=== PATIENT | female | born 1970 | race Caucasian/White ===

== ENCOUNTER 2020-06-25 11:06 | Outpatient (CLI) | payer BC, SELFPAY ==
--- NOTE | 2020-06-25 11:13 | MM_ITS ---
WS: [id number] SCREENING DIGITAL MAMMOGRAM WITH CAD HISTORY: SCREENING COMPARISON: 07/21/2015 Bilateral CC and MLO views submitted. Computer aided detection analyzed. Breast composition: There are scattered areas of fibroglandular density. No suspicious masses, microc alcifications or architectural distortion. MM/[id number] IMPRESSION: BI-RADS: 1-Negative FOLLOW UP: 1 Year Follow-up
== END 2020-06-25 11:07 | disposition home or self-care (01) ==
LOC: RADSHAW 11:11
PROVIDERS: PCP Registered Nurse; Visit Provider Registered Nurse
DX: Z12.31 Encounter for screening mammogram for malignant neoplasm of breast (principal)
CPT/HCPCS: 77067

== ENCOUNTER → 2020-08-24 15:05 | Outpatient (BNVA) | payer BC, SELFPAY | PROVIDERS: PCP Registered Nurse; Referring Provider Dermatology; Visit Provider Podiatrist Foot & Ankle Surgery | DX: M77.41 Metatarsalgia, right foot (principal); M77.42 Metatarsalgia, left foot; M67.471 Ganglion, right ankle and foot; M67.472 Ganglion, left ankle and foot; M19.071 Primary osteoarthritis, right ankle and foot; M19.072 Primary osteoarthritis, left ankle and foot | CPT/HCPCS: 73630 ==

== ENCOUNTER 2021-01-12 02:18 | Observation (INO) | payer BC, SELFPAY ==
[2021-01-12] VITALS (28 sets, daily range): BP systolic 94–141; BP diastolic 54–85; PULSE 69–92; RESP 16–20; TEMP 36.7–37.2; O2SAT 92–100; BMI 31.8
--- NOTE | 2021-01-12 04:22 | W.ED.ABDPA2 ---
Documented by User: Judah Wright DO 01/17/21 15:22 HPI - Abdominal Pain General: Chief Complaint: Abdominal Pain Stated Complaint: Rt Side Pain Time Seen by Provider: 01/12/21 03:05 History of Present Illness: HPI narrative: 50-year-old female presents to the emergency room with light right lower quadrant pain that started yesterday progressively worsened throughout the day. She denies any dysuria urgency or frequency no vomiting or diarrhea no hematochezia melena. No hematuria. She has noticed is worse if she hits a bump or moves quickly it is better if she lays very still is actually a little bit worse she said when she lays down flat better when she is flexed at the hips and waist. She previously had several C-sections and a hysterectomy. MD elicited complaint: abdominal pain Onset (ago): hour(s) Pain Consistency: constant Location: RLQ Severity: severe Quality: cramping and stabbing Radiation: none Exacerbating factors: movement Relieving factors: rest Associated Symptoms: Reports anorexia, bloating, GI cramping, poor appetite and vomiting; Denies belching, change in bowel habits, change in stool character, chills, coffee ground emesis, constipation, diarrhea, dyspepsia, dysuria, excessive flatus, fever(s), heartburn, hematochezia, hematuria, hematemesis, fecal incontinence, loose stools, melena, nausea and syncope Review of Systems Const: Denies: fever(s) or chills ENMT: Denies: throat pain, ear or mastoid pain, nasal discharge or nasal congestion Card: Denies: syncope Resp: Denies: dyspnea, productive cough or non-productive cough GI: Reports: vomiting, bloating and GI cramping; Denies: nausea, hematemesis, coffee ground emesis, heartburn, diarrhea, constipation, belching, excessive flatus, fecal incontinence, change in bowel habits, change in stool character, hematochezia or melena : Denies: dysuria or hematuria Skin/Breast: Denies: rash or pruritus PFSH ED PFSH: Medical History (Updated 01/14/21 @ 00:01 by ) No pertinent past medical history Surgical History (Updated 01/12/21 @ 08:09 by Phil Walker MD) H/O: hysterectomy / BSO --laparoscopic-assisted vaginal History of x 2 Family History Other Cancer Diabetes Social History Smoking and tobacco status: never smoked Alcohol intake: never Physical Exam Const: COMMON NORMALS: no acute distress GENERAL APPEARANCE: cooperative and comfortable ORIENTATION/CONSCIOUSNESS: Yes awake, Yes oriented to person, Yes oriented to place and Yes oriented to time HENMT: COMMON NORMALS: normocephalic, atraumatic and hearing grossly normal bilaterally HEAD & SCALP: normocephalic and atraumatic Neck/C-Spine: COMMON NORMALS: no JVD Resp: COMMON NORMALS: normal respiratory effort, No retractions, No use of accessory muscles and clear to auscultation bilaterally AUSCULTATION: clear to auscultation bilaterally Cardio: COMMON NORMALS: no JVD, regular rate, regular rhythm and No murmurs present (Cardio) RATE: regular rate RHYTHM: regular rhythm GI: COMMON NORMALS: No hepatosplenomegaly present AUSCULTATION: Yes Hypoactive bowel sounds present PALPATION: Yes Tenderness to palpation present (GI), Yes Guarding due to palpation present (GI) in the RLQ and Yes No hepatosplenomegaly present Extremity: COMMON NORMALS: normal to inspection, capillary refill normal, no clubbing, cyanosis or edema, no calf tenderness and no pedal edema Neuro: SENSORIUM/ORIENTATION: Yes oriented to person, Yes oriented to place and Yes oriented to time Skin: COMMON NORMALS: no rashes or lesions noted GENERAL SKIN EXAM: no rashes or lesions noted Course Vital Signs: Vital signs: Vital Signs Temperature 97.7 F 01/13/21 11:19 Pulse Rate 66 01/13/21 11:19 Respiratory Rate 18 01/13/21 11:19 Blood Pressure 119/76 01/13/21 11:19 Pulse Oximetry 96 01/13/21 11:19 MDM - Abdominal Pain MDM Narrative: Medical decision making narrative: Suspect appendicitis based on presentation care turned over to Dr. Nicolas at change of shift see his notes for final diagnosis and disposition. Lab Data: Labs: Lab Results 01/12/21 01/12/21 01/12/21 Range/Units 04:06 04:47 04:47 WBC 18.4 H (4.0-10.0) 10^3/ uL RBC 5.10 (4.1-5.3) 10^6/u L Hgb 15.0 (11.5-15.3) g/dL Hct 44.8 (37.0-47.0) % MCV 87.8 (81-99) fL MCH 29.4 (28.0-34.0) pg MCHC 33.5 (30.0-36.0) g/dL RDW 13.3 (12.1-15.1) % Plt Count 395 (130-400) 10^3/c mm MPV 9.6 (7.4-10.4) fL Neut % (Auto) 85.9 % Lymph % (Auto) 8.5 % [place] % (Auto) 4.3 % Eos % (Auto) 0.6 % Baso % (Auto) 0.3 % Neut # (Auto) 15.76 H (1.8-7.7) 10^3/u L Lymph # (Auto) 1.6 (0.8-4.8) 10^3/u L [place] # (Auto) 0.8 (0.2-0.9) 10^3/u L Eos # (Auto) 0.1 (0.0-0.8) 10^3/u L Baso # (Auto) 0.1 (0.0-0.1) 10^3/u L Nucleated RBC % (a uto) 0 % Nucleated RBCs # 0.0 /100WBC Sodium 139 (136-145) mmol/L Potassium 3.6 (3.5-5.1) mmol/L Chloride 98 (98-107) mmol/L Carbon Dioxide 29 (22-29) mmol/L Anion Gap 15.6 (5-19) BUN 8 (6-20) mg/dL Creatinine 0.5 (0.5-0.9) mg/dL GFR Calculation 130.6 H (90-130) mL/min Glucose 125 H (65-115) mg/dL Calculated Osmolal ity 288 (285-295) mOsm/k g Calcium 8.7 (8.5-10.5) mg/dL Total Bilirubin 0.5 (0.15-1.2) mg/dL AST 18 (0-32) U/L ALT 25 (0-33) U/L Alkaline Phosphata se 68 (35-105) IU/L Total Protein 7.2 (6.6-8.7) g/dL Albumin 4.0 (3.5-5.2) g/dL Globulin 3.2 (1.3-4.6) g/dL Lipase 15 (13-60) U/L Urine Color Yellow (Yellow) Urine Appearance Hazy A (CLEAR) Urine pH 7 (5-7) Ur Specific Gravit y 1.005 (1.005-1.030) Urine Protein Neg (Negative) Urine Glucose (UA) Norm (Normal) Urine Ketones Negative (Negative) Urine Blood 2+ H (Negative) Urine Nitrate Negative (Negative) Urine Bilirubin Neg (Negative) Urine Urobilinogen Norm (Negative) mg/dL Ur Leukocyte Ashley ase Negative (Negative) Urine RBC 0-4 H (0-2) /hpf Urine WBC 0-4 H (0-5) /hpf Ur Squamous Epith Cells 25-40 H (0-5) /hpf Amorphous Sediment Not Reportable Urine Bacteria 2+ H (NONE) /hpf Urine Mucus 1+ /hpf Discharge Plan Discharge Patient Disposition: Placed in Observation Admit Provider: Phil Walker Clinical Impression: Acute appendicitis Discharge Diet: Advance as tolerated Discharge Activity: Limit activity as instructed Sign Out Sign Out Data: Patient Sign Out occurred on 01/12/21 at 06:11. Patient's care was discussed, and care was transferred from to Mychal Nicolas MD. Coding Level of Care Code ED Ferry Boat Captain for Chg Fwd Exam Comprehensive Documented by User: Mychal Nicolas MD 01/12/21 08:17 HPI - Abdominal Pain General: Chief Complaint: Abdominal Pain Stated Complaint: Rt Side Pain Time Seen by Provider: 01/12/21 03:05 PFSH ED PFSH: Medical History (Updated 01/14/21 @ 00:01 by ) No pertinent past medical history Surgical History (Updated 07/27/21 @ 08:09 by Phil Walker MD) H/O: hysterectomy / BSO --laparoscopic-assisted vaginal History of x 2 Family History Other Cancer Diabetes Social History Smoking and tobacco status: never smoked Alcohol intake: never Course Reevaluation(s): Reevaluation #1: I did discuss at length with patient and family about findings of acute appendicitis. General surgery will come see patient for further evaluation and treatment. Patient is n.p.o. Time: 07:45 Consultations: Consultation #1: I did discuss at length with Dr. Walker general surgery states he will come see the patient for evaluation. Time: 07:45 Vital Signs: Vital signs: Vital Signs Temperature 97.7 F 01/13/21 11:19 Pulse Rate 66 01/13/21 11:19 Respiratory Rate 18 01/13/21 11:19 Blood Pressure 119/76 01/13/21 11:19 Pulse Oximetry 96 01/13/21 11:19 MDM - Abdominal Pain Differential Diagnosis: Differential diagnosis abdominal pain: Likely abdominal pain, acute appendicitis, calculus of kidney, constipation, diverticulitis, endometriosis, gastroenteritis, pancreatitis and small bowel obstruction Medical Records: Attestation: I reviewed the patient's medical records. Lab Data: Attestation: I reviewed the patient's lab results. Labs: Lab Results 01/12/21 01/12/21 01/12/21 Range/Units 04:06 04:47 04:47 WBC 18.4 H (4.0-10.0) 10^3/ uL RBC 5.10 (4.1-5.3) 10^6/u L Hgb 15.0 (11.5-15.3) g/dL Hct 44.8 (37.0-47.0) % MCV 87.8 (81-99) fL MCH 29.4 (28.0-34.0) pg MCHC 33.5 (30.0-36.0) g/dL RDW 13.3 (12.1-15.1) % Plt Count 395 (130-400) 10^3/c mm MPV 9.6 (7.4-10.4) fL Neut % (Auto) 85.9 % Lymph % (Auto) 8.5 % [place] % (Auto) 4.3 % Eos % (Auto) 0.6 % Baso % (Auto) 0.3 % Neut # (Auto) 15.76 H (1.8-7.7) 10^3/u L Lymph # (Auto) 1.6 (0.8-4.8) 10^3/u L [place] # (Auto) 0.8 (0.2-0.9) 10^3/u L Eos # (Auto) 0.1 (0.0-0.8) 10^3/u L Baso # (Auto) 0.1 (0.0-0.1) 10^3/u L Nucleated RBC % (a uto) 0 % Nucleated RBCs # 0.0 /100WBC Sodium 139 (136-145) mmol/L Potassium 3.6 (3.5-5.1) mmol/L Chloride 98 (98-107) mmol/L Carbon Dioxide 29 (22-29) mmol/L Anion Gap 15.6 (5-19) BUN 8 (6-20) mg/dL Creatinine 0.5 (0.5-0.9) mg/dL GFR Calculation 130.6 H (90-130) mL/min Glucose 125 H (65-115) mg/dL Calculated Osmolal ity 288 (285-295) mOsm/k g Calcium 8.7 (8.5-10.5) mg/dL Total Bilirubin 0.5 (0.15-1.2) mg/dL AST 18 (0-32) U/L ALT 25 (0-33) U/L Alkaline Phosphata se 68 (35-105) IU/L Total Protein 7.2 (6.6-8.7) g/dL Albumin 4.0 (3.5-5.2) g/dL Globulin 3.2 (1.3-4.6) g/dL Lipase 15 (13-60) U/L Urine Color Yellow (Yellow) Urine Appearance Hazy A (CLEAR) Urine pH 7 (5-7) Ur Specific Gravit y 1.005 (1.005-1.030) Urine Protein Neg (Negative) Urine Glucose (UA) Norm (Normal) Urine Ketones Negative (Negative) Urine Blood 2+ H (Negative) Urine Nitrate Negative (Negative) Urine Bilirubin Neg (Negative) Urine Urobilinogen Norm (Negative) mg/dL Ur Leukocyte Ashley ase Negative (Negative) Urine RBC 0-4 H (0-2) /hpf Urine WBC 0-4 H (0-5) /hpf Ur Squamous Epith Cells 25-40 H (0-5) /hpf Amorphous Sediment Not Reportable Urine Bacteria 2+ H (NONE) /hpf Urine Mucus 1+ /hpf Imaging Data ^: CT Abd/Pel: Attestation: I personally reviewed and interpreted this imaging study as follows: Radiologist's impression: IMPRESSION: Acute appendicitis. Discharge Plan Discharge Patient Disposition: Placed in Observation Admit Provider: Phil Walker Clinical Impression: Acute appendicitis Discharge Diet: Advance as tolerated Discharge Activity: Limit activity as instructed Sign Out Sign Out Data: Patient Sign Out occurred on 01/12/21 at 06:11. Patient's care was discussed, and care was transferred from to Mychal Nicolas MD. Coding Level of Care Code ED Ferry Boat Captain for Chg Fwd Exam Comprehensive
[2021-01-12 04:27] LABS: Add Urine Culture? No; Add Urine Microscopic? YES; Bacteria Urine 2+ /hpf; Bilirubin Urine Neg (Negative); Blood Urine 2+ (Negative); Glucose Urine UA Norm (Normal); Ketones Urine Negative (Negative); Leukocyte Esterase Urine Negative (Negative); Mucus Urine 1+ /hpf; Nitrate Urine Negative (Negative); Protein Urine Neg (Negative); RBC Urine 0-4 /hpf (0-2); Specific Gravity, Urine 1.005 (1.005-1.030); Squamous Epithelial Cell Urine 25-40 /hpf (0-5); Urine Appearance Hazy (CLEAR); Urine Color Yellow (Yellow); Urobilinogen Urine Norm (Negative); WBC Urine 0-4 /hpf (0-5); pH Urine 7 (5-7)
--- NOTE | 2021-01-12 04:43 | CTR_ITS ---
PROCEDURE INFORMATION: Exam: CT Abdomen And Pelvis With Contrast Exam date and time: 01/12/2021 4:43 AM Age: 50 years old Clinical indication: Abdominal pain; Localized; Right lower quadrant (rlq); Prior surgery; Surgery date: 6+ months; Surgery type: Hyst; Additional info: Abd pain TECHNIQUE: Imaging protocol: Computed tomography of the abdomen and pelvis with contrast. Radiation optimization: All CT scans at this facility use at least one of these dose optimization techniques: automated exposure control; mA and/or kV adjustment per patient size (includes targeted exams where dose is matched to clinical indication); or iterative reconstruction. Contrast material: VISI; Contrast volume: 95 ml; Contrast route: INTRAVENOUS (IV); COMPARISON: No relevant prior studies available. RADIATION DOSE METRICS: Total DLP (mGy-cm): 1722.26 FINDINGS: Lungs: There is mild subsegmental atelectasis in the right lung base. Liver: Normal. No mass. Gallbladder and bile ducts: Normal. No calcified stones. No ductal dilation. Pancreas: Normal. No ductal dilation. Spleen: Normal. No splenomegaly. Adrenal glands: Normal. No mass. Kidneys and ureters: Nonobstructing calcifications are present in the left kidney. There is focal scarring in the left upper pole. There is no hydronephrosis. Stomach and bowel: Unremarkable. No obstruction. No mucosal thickening. Appendix: The appendix is dilated and thickened and there is surrounding inflammation. The findings indicate acute appendicitis. No extraluminal gas or fluid collection is seen. Intraperitoneal space: Unremarkable. No free air. No significant fluid collection. Vasculature: Unremarkable. No abdominal aortic aneurysm. Lymph nodes: Unremarkable. No enlarged lymph nodes. Urinary bladder: Unremarkable as visualized. Reproductive: Unremarkable as visualized. Bones/joints: Mild DJD is present in the spine. Soft tissues: There is a small uncomplicated fat containing umbilical hernia. CT/CT abdomen pelvis w con* [id number] IMPRESSION: Acute appendicitis. Radiation Dose CTDIVOL = (mGy): DLP = 1722.26 (mGy-cm)
[2021-01-12] MEDS: sodium chloride 0.9% 1,000 ML 999 ML IV (04:51)
[2021-01-12] MEDS: ondansetron 2 mg/ML SDV 2 mL 4 MG IVP ×4 (04:53→11:49)
[2021-01-12 04:54] LABS: Basophils # 0.1 10^3/uL (0.0-0.1); Basophils % 0.3 %; Eosinophils # 0.1 10^3/uL (0.0-0.8); Eosinophils % 0.6 %; Hematocrit 44.8 % (37.0-47.0); Lymphocytes # 1.6 10^3/uL (0.8-4.8); Lymphocytes % 8.5 %; Mean Corpuscular HGB Conc 33.5 g/dL (30.0-36.0); Mean Corpuscular Hemoglobin 29.4 pg (28.0-34.0); Mean Corpuscular Volume 87.8 fL (81-99); Mean Platelet Volume 9.6 fL (7.4-10.4); Monocytes # 0.8 10^3/uL (0.2-0.9); Monocytes % 4.3 %; Neutrophils # 15.76 10^3/uL (1.8-7.7); Neutrophils % 85.9 %; Nucleated Red Blood Cells % 0 %; Platelet Count 395 10^3/cmm (130-400); Red Cell Distribution Width 13.3 % (12.1-15.1); White Blood Count 18.4 10^3/uL (4.0-10.0)
[2021-01-12] MEDS: morphine 4 mg/mL SDV 1 mL IVP ×3 (04:54→11:48)
[2021-01-12 05:12] LABS: Alanine Aminotransferase 25 U/L (0-33); Alkaline Phosphatase 68 IU/L (35-105); Anion Gap 15.6 (5-19); Aspartate Amino Transferase 18 U/L (0-32); Blood Urea Nitrogen 8 mg/dL (6-20); Calcium 8.7 mg/dL (8.5-10.5); Carbon Dioxide 29 mmol/L (22-29); Chloride 98 mmol/L (98-107); Globulin 3.2 g/dL (1.3-4.6); Glomerular Filtration Rate 130.6 mL/min (90-130); Glucose 125 mg/dL (65-115); Lipase 15 U/L (13-60); Osmolality Calculated 288 mOsm/kg (285-295); Potassium 3.6 mmol/L (3.5-5.1); Sodium 139 mmol/L (136-145); Total Bilirubin 0.5 mg/dL (0.15-1.2); Total Protein 7.2 g/dL (6.6-8.7)
[2021-01-12] MEDS: iodixanol 320 mg/mL 100mL Btl IV (05:30)
--- NOTE | 2021-01-12 06:09 | XR_ITS ---
WS: [id number] XR chest 1V portable [id number] REASON FOR EXAM: SOB FINDINGS: The heart and mediastinum are within normal limits. No active pulmonary parenchymal or pleural disease. The bony thorax is intact. XR/XR chest 1V portable [id number] IMPRESSION: No acute chest abnormality.
--- NOTE | 2021-01-12 07:17 | PC.NURSE ---
Received report assumed care. No changes noted from report. Pain continues. Waiting for CT report. Continue to monitor.
[2021-01-12] MEDS: lactated ringers 1,000 ML 150 ML IV (08:00)
--- NOTE | 2021-01-12 08:04 | PM.HP ---
Providers/Chief Complaint Admitting Physician: General Surgery Phil Walker MD Primary Care Provider: DIXIE Ortega Chief Complaint: Rt Side Pain History of Present Illness Lora Wood is a 50 year old female who awoke yesterday morning with generalized abdominal pain. As the day progressed the pain moved to the right lower quadrant of the abdomen. She became nauseated but still has never vomited. She denies any changes in bowel habits, fevers and chills. She came to the emergency room this morning and a CAT scan showed changes consistent with acute appendicitis. Of note, the patient has been able to avoid the Covid virus so far. She is not vaccinated, however. Review of Systems General: Reports: 10 or more systems reviewed and unremarkable except in HPI and below Const: Denies: fever(s) GI: Reports: abdominal pain and nausea; Denies: vomiting or change in bowel habits Medications/Allergies Home Medications Medication Instructions Recorded Confirmed Last Taken Type meloxicam 15 mg tablet 15 mg PO DAILY 30 Days #30 tab 10/26/20 10/26/20 Unknown Rx Allergies Allergy/AdvReac Type Severity Reaction Status Date / Time Sulfa (Sulfonamide Allergy Rash Verified 10/26/20 15:08 Antibiotics) PFSH Acute PFSH: Medical History (Updated 01/12/21 @ 07:45 by Mychal Nicolas MD) No pertinent past medical history Surgical History (Updated 01/12/21 @ 08:09 by Phil Walker MD) H/O: hysterectomy / BSO --laparoscopic-assisted vaginal History of x 2 Family History Other Cancer Diabetes Social History Smoking and tobacco status: never smoked Alcohol intake: never Vitals/I&O/Wt Last Vital Signs Temp 98.1 F 01/12/21 02:29 Pulse 81 01/12/21 07:00 Resp 17 01/12/21 07:30 BP 122/69 01/12/21 07:30 Pulse Ox 97 01/12/21 07:30 01/11/21 01/12/21 01/12/21 22:59 06:59 14:59 Intake Total 1000 / 1000 Balance 1000 / 1000 Weight last 48 hrs Weight 180 lb Physical Exam Narrative: EXAM NARRATIVE: The patient was encountered in her room in the emergency department. She does not appear to be in any acute distress but acts like she just does not feel very well. The pupils are equal. No carotid bruits are heard. The lungs are clear. The heart is regular. The abdomen is moderately obese and reveals bowel sounds but they are hypoactive. The patient has exquisite tenderness in the right lower quadrant somewhat laterally. Rovsing's sign is negative. No obvious masses are palpated. The extremities reveal no edema. Neurologically the patient appears to be grossly intact. Data : 01/12/21 04:47 01/12/21 04:47 CT Abd/Pel: Radiologist's impression: CT abdomen/pelvis 01/12/2021 IMPRESSION: Acute appendicitis. A&P Assessment and plan (1) Acute appendicitis: I agree with the assessment of acute appendicitis. The patient's appendix is dilated and there are some periappendiceal inflammatory changes around the appendix which is below and lateral to the cecum. I discussed appendicitis with the patient in some detail. Both medical and surgical methods of treatment were gone over. Surgical risks of bleeding, infection, internal organ injury, etc. were all discussed. The patient seems to understand and would like to proceed with an appendectomy today. The patient has been n.p.o. We are planning an appendectomy later today when some time opens up in the operating room. Status: Acute Attestations Medical Necessity Statement*: Based on my medical assessment, presenting symptoms and consideration of the scope of surgical therapy, I expect this patient will require treatment in the hospital for a period of time spanning less than 2 midnights, and is therefore being placed in observation status. Coding Level of Care Code Acute [facility] Diagnoses Acute appendicitis K35.80
[2021-01-12] MEDS: metroNIDAZOLE IV 500 MG/100 ML PREMIX 100 MG IV (11:51)
[2021-01-12] MEDS: piperacillin-tazobactam 3.375 GM in sodium chloride 0.9% (plus) 50 ML IV ×2 (14:45→21:02)
[2021-01-12] MEDS: fentaNYL 50 mcg/mL INJ 2mL 100 MCG IVP (15:13)
--- NOTE | 2021-01-12 15:31 | P.ANESASSM_ITS ---
Pre-Anesthetic Assessment Pre-Anesthetic Assessment: Height/Weight: Height 1.6 m Weight 81.647 kg Temp Pulse Resp BP Pulse Ox 98.4 F 83 18 135/73 98 01/12/21 14:45 01/12/21 14:45 01/12/21 15:13 01/12/21 14:45 01/12/21 15:13 Proposed Procedure: Operation Date: 01/12/21 16:30 Proposed Procedures p Laparoscopic Appendectomy(Not Applicable) - Phil Walker MD Was Beta Mary taken within 24 hours: N/A Was Clonidine taken within 24 hours: N/A Social: Social History: No alcohol and No tobacco Exam: Pre-Anes Outpt Exam: alert, oriented x 3, clear to auscultation bilaterally and regular rate & rhythm Airway: Submandibular: WNL Cervical ROM: WNL MP: 2 Dentition: Full History/ROS: No significant history except as noted GI: Comments: Acute abdomen Anesthetic Plan: ASA status: 1E Anesthesia: General (RSI) Risk of > 500 ml blood loss (7ml/kg in children): No Meds/Allergies Current Medications: Current Medications Generic Name Dose Route Start Last Admin Trade Name Freq PRN Reason Stop Dose Admin Lactated Ringer's 1,000 mls @ 150 m ls/hr 01/12/21 08:00 01/12/21 08:00 Lactated Ringers IV 150 mls/hr .[id number] MANGO Administration Ondansetron HCl 4 mg 01/12/21 08:00 01/12/21 11:49 Ondansetron 2 Mg /Ml Sdv 2 Ml IVP 4 mg Q4H PRN Administration NAUSEA AND VOMITI NG PFSH Anesthesia PFSH: Medical History (Updated 01/12/21 @ 07:45 by Mychal Nicolas MD) No pertinent past medical history Surgical History (Updated 01/12/21 @ 08:09 by Phil Walker MD) H/O: hysterectomy / BSO --laparoscopic-assisted vaginal History of x 2 Family History Other Cancer Diabetes Social History Smoking and tobacco status: never smoked Alcohol intake: never Data Anesthesia CBC & Chem 7: 01/12/21 04:47 01/12/21 04:47 Other Labs: Laboratory Results - last 48 hr 01/12/21 01/12/21 01/12/21 04:06 04:47 04:47 WBC 18.4 H RBC 5.10 Hgb 15.0 Hct 44.8 MCV 87.8 MCH 29.4 MCHC 33.5 RDW 13.3 Plt Count 395 MPV 9.6 Neut % (Auto) 85.9 Lymph % (Auto) 8.5 [place] % (Auto) 4.3 Eos % (Auto) 0.6 Baso % (Auto) 0.3 Neut # (Auto) 15.76 H Lymph # (Auto) 1.6 [place] # (Auto) 0.8 Eos # (Auto) 0.1 Baso # (Auto) 0.1 Nucleated RBC % (auto) 0 Nucleated RBCs # 0.0 Sodium 139 Potassium 3.6 Chloride 98 Carbon Dioxide 29 Anion Gap 15.6 BUN 8 Creatinine 0.5 GFR Calculation 130.6 H Glucose 125 H Calculated Osmolality 288 Calcium 8.7 Total Bilirubin 0.5 AST 18 ALT 25 Alkaline Phosphatase 68 Total Protein 7.2 Albumin 4.0 Globulin 3.2 Lipase 15 Urine Color Yellow Urine Appearance Hazy A Urine pH 7 Ur Specific Abbott 1.005 Urine Protein Neg Urine Glucose (UA) Norm Urine Ketones Negative Urine Blood 2+ H Urine Nitrate Negative Urine Bilirubin Neg Urine Urobilinogen Norm Ur Leukocyte Esterase Negative Urine RBC 0-4 H Urine WBC 0-4 H Ur Squamous Epith Cells 25-40 H Amorphous Sediment Not Reportable Urine Bacteria 2+ H Urine Mucus 1+ Cardiac Studies: No Data to Display
--- NOTE | 2021-01-12 15:59 | PM.OP ---
Operative Report Date of procedure: January 12, 2021 Pre-op Diagnosis: Acute appendicitis. Post-op diagnosis: same Procedure Done: Laparoscopic appendectomy. Specimens removed/disposition: Appendix. Surgeon: Phil Walker Anesthesia: General Estimated blood loss (mL): 5 Complications: None. Condition: stable Disposition: PACU Procedure: The patient was brought to the Operating Room and was placed in a supine position on the operating room table. General endotracheal anesthesia was induced. The abdomen was prepped and draped in a sterile fashion. A small vertical incision was carried out in the superior aspect of the umbilicus. Blunt dissection was carried out down to the fascia, which was grasped with a Bin clamp. A stay suture of 0 Vicryl was placed on either side of the midline and the midline fascia was incised. The underlying peritoneum was opened bluntly and the Elpidio port was placed directly into the peritoneal cavity and was held in place with the inflatable balloon. The peritoneal cavity was insufflated with carbon dioxide. The laparoscope was used to inspect the peritoneal cavity. The patient's appendix was somewhat superficial inferior and just lateral to the cecum. It was clearly inflamed with some exudate on the surface. There was early phlegmon posteriorly. The patient's ovaries were somewhat cystic, particular on the left side. No other gross abnormalities were noted. Two 5-millimeter ports were placed in the left lower quadrant under direct vision. The patient was tilted in a Trendelenburg position and slightly to the left side. A laparoscopic Mark was used to elevate the appendix as it was bluntly freed from the surrounding subacute adhesions. The appendix was further freed using blunt dissection and hydrodissection and was then elevated. The mesoappendix was divided using cautery to maintain hemostasis at the base of the appendix. The base of the appendix appeared healthy and was divided using an endoscopic stapler. The appendix was removed from the peritoneal cavity after being placed in a laparoscopic bag. The right lower quadrant and pelvis were irrigated. The staple line on the cecum was identified and appeared to be in good condition. The Elpidio port was removed from the umbilical site and the stay sutures of Vicryl were tied to each other at the umbilicus[], closing the fascial defect so that it was airtight. A final round of irrigation was carried out in the right lower quadrant and the pelvis. No ongoing problems were seen. The remaining ports were removed from the abdominal wall as the pneumoperitoneum was evacuated. All skin incisions were closed using inverted interrupted sutures of 4-0 Vicryl. Benzoin and Steri-Strips were placed over the incisions and Band-Aids followed. The patient was taken to the Recovery Room in stable condition postoperatively.
[2021-01-12] MEDS: D5-NS 0.45% + KCL 20 mEq 20 MEQ/1,000 ML BAG 100 MEQ IV (17:23)
[2021-01-12] MEDS: heparin 5,000 unit/mL INJ 1 mL 5000 UNIT SUBCUT (17:24)
[2021-01-12] MEDS: HYDROcodone-acetaminophen 5-325 mg Tablet PO ×2 (17:24→22:00)
--- NOTE | 2021-01-12 18:24 | ANE.PACU2 ---
Inpatient post-anesthesia follow up: Airway intact: Yes Vital signs: Temperature 98.2 F Pulse Rate [Monito r] 80 Pulse Rate 86 Respiratory Rate 17 Blood Pressure [Le ft Arm] 123/78 Blood Pressure 141/85 Pulse Oximetry 92 Oxygen Delivery Me thod Room Air Oxygen Flow Rate 6 Fraction of Inspir ed Oxygen Hydration adequate: Yes Nausea and vomiting: No Pain level: 3 Mental status: Baseline
[2021-01-12] MEDS: famotidine 20 mg/2 mL INJ IVP (21:02)
[2021-01-13] MEDS: D5-NS 0.45% + KCL 20 mEq 20 MEQ/1,000 ML BAG 100 MEQ IV (02:49)
[2021-01-13 03:40] VITALS: BP 109/70; PULSE 67; RESP 18; TEMP 36.9; O2SAT 94
[2021-01-13] MEDS: heparin 5,000 unit/mL INJ 1 mL 5000 UNIT SUBCUT (04:09)
[2021-01-13] MEDS: piperacillin-tazobactam 3.375 GM in sodium chloride 0.9% (plus) 50 ML IV (04:09)
[2021-01-13] MEDS: HYDROcodone-acetaminophen 5-325 mg Tablet PO ×2 (04:09→10:54)
[2021-01-13 07:13] LABS: Basophils % 0.3 %; Hematocrit 42.3 % (37.0-47.0); Hemoglobin 13.8 g/dL (11.5-15.3); Lymphocytes % 8.5 %; Mean Corpuscular HGB Conc 32.6 g/dL (30.0-36.0); Mean Corpuscular Hemoglobin 29.4 pg (28.0-34.0); Mean Platelet Volume 10.2 fL (7.4-10.4); Monocytes # 0.7 10^3/uL (0.2-0.9); Neutrophils # 9.81 10^3/uL (1.8-7.7); Neutrophils % 84.9 %; Nucleated Red Blood Cells % 0 %; Platelet Count 354 10^3/cmm (130-400); Red Cell Distribution Width 13.4 % (12.1-15.1); White Blood Count 11.6 10^3/uL (4.0-10.0)
[2021-01-13 08:11] LABS: Anion Gap 11.9 (5-19); Blood Urea Nitrogen 5 mg/dL (6-20); Calcium 7.8 mg/dL (8.5-10.5); Carbon Dioxide 27 mmol/L (22-29); Chloride 101 mmol/L (98-107); Glucose 116 mg/dL (65-115); Osmolality Calculated 280 mOsm/kg (285-295); Potassium 3.9 mmol/L (3.5-5.1); Sodium 136 mmol/L (136-145)
[2021-01-13] MEDS: levalbuterol 0.63 mg/3 mL Neb INHALATION (08:45)
[2021-01-13 08:49] VITALS: PULSE 71; RESP 18; O2SAT 97
[2021-01-13 08:54] VITALS: PULSE 70
[2021-01-13 09:07] VITALS: BP 119/76; PULSE 66; RESP 18; TEMP 36.5; O2SAT 96
[2021-01-13] MEDS: famotidine 20 mg/2 mL INJ IVP (09:32)
--- NOTE | 2021-01-13 09:33 | PM.DCS ---
Discharge Providers Date of Admission: 01/12/21 16:19 Date of Discharge: January 13, 2021 Attending Provider at Admission: hPil Walker MD Attending Provider at Discharge: Phil Walker MD Primary Care Provider: DIXIE Ortega Diagnoses at Discharge Discharge Diagnosis (1) Acute appendicitis: Status: Acute Reason for Visit Reason for Visit: Rt Side Pain Hospital Course Hospital Course This is a 50-year-old white female who developed abdominal pain before presenting to the emergency department. Imaging revealed evidence of acute appendicitis. The patient was taken to the operating room and a laparoscopic appendectomy was performed. By the following morning she was already feeling much better, her white blood cell count had almost normalized, and she was afebrile. She was already passing flatus and tolerating an oral diet. She was anxious to go home. She was instructed with respect to wound care, activity limitations, diet, etc. I will make arrangements for the patient to follow-up from my office early next week as an outpatient. Physical Exam Narrative: EXAM NARRATIVE: The patient is afebrile. Bowel sounds are present. All of the laparoscopic incisions look good. Discharge Data Data Completed and Pending: Completed Studies During Hospitalization Category Date Time Status CT abdomen pelvis w con* [id number] Stat Cat Scan 01/12/21 04:43 Completed XR chest 1V tylor ble [id number] Urgent Exams 01/12/21 06:09 Completed Pending at discharge Category Date Time Status Pathology: Surgic al [PTH] Routine Pth 01/12/21 16:29 Received Labs from last 24 hours 01/13/21 01/13/21 06:28 06:28 WBC 11.6 H RBC 4.70 Hgb 13.8 Hct 42.3 MCV 90.0 MCH 29.4 MCHC 32.6 RDW 13.4 Plt Count 354 MPV 10.2 Neut % (Auto) 84.9 Lymph % (Auto) 8.5 [place] % (Auto) 6.0 Eos % (Auto) 0.0 Baso % (Auto) 0.3 Neut # (Auto) 9.81 H Lymph # (Auto) 1.0 [place] # (Auto) 0.7 Eos # (Auto) 0.0 Baso # (Auto) 0.0 Nucleated RBC % (a uto) 0 Nucleated RBCs # 0.0 Sodium 136 Potassium 3.9 Chloride 101 Carbon Dioxide 27 Anion Gap 11.9 BUN 5 L Creatinine 0.4 L GFR Calculation 169.0 H Glucose 116 H Calculated Osmolal ity 280 L Calcium 7.8 L Vitals: Last Vital Signs Temp 97.7 F 01/13/21 09:07 Pulse 66 01/13/21 09:07 Resp 18 01/13/21 09:07 BP 119/76 01/13/21 09:07 Pulse Ox 96 01/13/21 09:07 Discharge Plan Discharge Patient Disposition: Home Condition: Stable Prescriptions: New hydrocodone-acetaminophen 5-325 mg tablet 1 - 2 tab PO Q5H PRN (Reason: pain) Qty: 30 RF: 0 Continued No Known Home Medications RF: 0 Discharge Orders: Discharge Order (Routine); Ordered 01/13/21 Ordered By: Phil Walker Referrals: Phil Walker MD [Physician] - 1 week (Nursing: Please call Dr. Walker's office ([phone]) and make an appointment for the patient to be seen next week.) Lindsay Arredondo FNP [Primary Care Provider] - Discharge Diet: Advance as tolerated Discharge Activity: Limit activity as instructed Patient Instructions: Hydrocodone/Acetaminophen (By mouth), Appendicitis (GEN), Laparoscopic Appendectomy (DC), Opioid Safety Activity Restrictions/Additional Instructions: 1. Discharge to home today. 2. Appointment to see Dr. Walker next week as above. 3. Bandages / bandaids off later today as discussed, leave Steri-Strip(s) on, may shower. 4. [place] 5/325 1-2 tablets by mouth every 5 hours as needed for pain. #30, no refills. No lifting over 20 pounds, no repetitive bending or twisting, no strenuous pushing / pulling or other heavy activity. Ambulate regularly. May go up and down steps if needed. Discharge Attestations Time Spent in Discharge Care*: less than 30 min Quality Metrics Clinical Quality Measures During this hospital stay, did patient experience: None Coding Level of Care Code Acute Chg FW DC note Diagnoses Acute appendicitis K35.80
--- NOTE | 2021-01-13 09:51 | PC.CHAP ---
Pastoral Care Encounter/Spiritual Assessment Type of Contact [] Declined administration clerk visit [] Patient/Family/Request visit [] Outpatient visit [] Follow-up visit [] Physician referral [] Code/Alert [x] Routine visit [] Staff referral [] Actively dying [] Patient sleeping [] Family support [] [] Out of room [] Palliative care [] [] Receiving care in room [] Pre-surgical visit [] Trauma [] Long length of stay [] ICU visit [] Other: Relational/Emotional Strength [xPatient feels connected with others/family/visitors/staff [] Distress [] Loneliness/isolation [] Abandonment Spirituality of Patient [x] Person of Lucia [] Attends Sabianist of their Lucia [] Believes in Prayer [] Reads Bible or Congregational materials [] There are Spiritual issues to be addressed Pesticide Control Inspector Interventions [x] Prayer [] Active listening [] Non-anxious presence [] Spiritual/emotional support [] Crisis/trauma care [] Spiritual counseling [] Bereavement support [] Provided bereavement packet [] Provided Bible/devotional materials [] Provided toy/stuffed animal, coloring book to patient or family member [] Provided Communion [] Anointing/[place] [] Salvation [x] Completed spiritual assessment [] Other: Impact on Illness or Injury [] Angry [] Fearful [] Anxious [] Often cries [] Exhaustion [] Unable to work [] Unable to attend quaker [] Unable to walk/stand [] Unable to read [] Unable to drive [] Unable to eat/drink [] Unable to sleep [] Unable to be with family [] Patient intubated [] Other: Summary Time spent with patient 10 min
--- NOTE | 2021-01-13 11:09 | PC.NURSE ---
Discharge summary Patient educated on restrictions and what she could and could not do post op. Patient and verbalized understanding. Medications e-scribed to [place] pharmacy. Patient educated on post op signs and symptoms of infection to watch for. Follow up appointment information was highlighted on the discharge instructions. Patient then wheeled out by a nurse via wheelchair to private vehicle.
[2021-01-13 11:19] VITALS: BP 119/76; PULSE 66; RESP 18; TEMP 36.5; O2SAT 96
== END 2021-01-13 11:21 | disposition home or self-care (01) ==
LOC: ER 09:07 → OPS 14:29 → MEDSURG 16:19
PROVIDERS: Nurse Practitioner Family; Admitting Provider Surgery; Emergency Provider Emergency Medicine; PCP Registered Nurse; Visit Provider Surgery
PROC: 0DTJ4ZZ Resection of Appendix, Percutaneous Endoscopic Approach (ICD-10-PCS; CPT 44970; principal; 2021-01-12 16:30)
DX: K35.80 Unspecified acute appendicitis (principal)
CPT/HCPCS: 44970; 36415; 71045; 74177; 80048; 80053; 81001; 83690; 85025; 88304; 94640; 96361; 96365; 96366; 96367; 96372; 96375; 96376; 99285; G0378; J1100; J1644; J2270; J2405; J2543; J2704; J2710; J3010; J3490; J7030; J7614; Q9967; S0030

== ENCOUNTER 2021-09-24 09:18 | Outpatient (CLI) | payer BC, SELFPAY ==
--- NOTE | 2021-09-24 09:28 | MM_ITS ---
WS: [id number] BILATERAL 3D TOMOSYNTHESIS DIGITAL SCREENING MAMMOGRAPHY WITH CAD CLINICAL INFORMATION: SCREENING HISTORY: Screening mammogram. No current complaints. COMPARISON: June 25, 2020 TECHNIQUE: Bilateral CC and MLO views. FINDINGS: Scattered fibroglandular densities bilaterally. No suspicious focal mass, asymmetry, calcifications, or architectural distortion. No evidence of malignancy. MM/[place] [id number] IMPRESSION: BI-RADS: 1-Negative FOLLOW UP: 1 Year Follow-up Recommend return to annual screening mammography.
== END 2021-09-24 09:19 | disposition home or self-care (01) ==
PROVIDERS: PCP Registered Nurse; Visit Provider Registered Nurse
DX: Z12.31 Encounter for screening mammogram for malignant neoplasm of breast (principal)
CPT/HCPCS: 77063; 77067

== ENCOUNTER 2023-08-10 13:22 | Outpatient (CLI) | payer BC, SELFPAY ==
--- NOTE | 2023-08-10 13:29 | MM_ITS ---
WS: [id number] BILATERAL SCREENING DIGITAL TOMOSYNTHESIS MAMMOGRAM WITH CAD HISTORY: SCREENING COMPARISON: 09/24/2021, 06/25/2020 Bilateral CC and MLO views with tomosynthesis and synthetic mammography submitted. Computer aided det ection analyzed. Breast composition: There are scattered areas of fibroglandular density. No suspicious masses, microc alcifications or architectural distortion. IMPRESSION: MM/[place] [id number] BI-RADS: 1-Negative FOLLOW UP: 1 Year Follow-up
== END 2023-08-10 13:23 | disposition home or self-care (01) ==
LOC: RAD 13:22
PROVIDERS: PCP Registered Nurse; Visit Provider Registered Nurse
DX: Z12.31 Encounter for screening mammogram for malignant neoplasm of breast (principal); R92.323 Mammographic fibroglandular density, bilateral breasts
CPT/HCPCS: 77063; 77067

== ENCOUNTER 2025-01-17 09:31 | Outpatient (CLI) | payer BC, SELFPAY ==
--- NOTE | 2025-01-17 09:36 | MM_ITS ---
WS: [id number] BILATERAL SCREENING DIGITAL TOMOSYNTHESIS MAMMOGRAM WITH CAD HISTORY: SCREENING COMPARISON: 08/10/2023, 09/24/2021 Bilateral CC and MLO views with tomosynthesis and synthetic mammography submitted. Computer aided detection analyzed. Breast composition: There are scattered areas of fibroglandular density. No suspicious masses, microcalcifications or architectural distortion. MM/MM scr BI tomosynthesis [id number] IMPRESSION: BI-RADS: 1 - Negative. FOLLOW UP: 1 Year Follow-up
== END 2025-01-17 09:32 | disposition home or self-care (01) ==
LOC: RAD 09:34
PROVIDERS: PCP Registered Nurse; Visit Provider Registered Nurse
DX: Z12.31 Encounter for screening mammogram for malignant neoplasm of breast (principal); R92.323 Mammographic fibroglandular density, bilateral breasts
CPT/HCPCS: 77063; 77067